=== PATIENT | female | born 1955 | race Caucasian/White ===

== ENCOUNTER 2018-11-04 05:25 | Day surgery (SDC) | payer OTHER ==
[2018-11-03 14:59] VITALS: BMI 26.2
[2018-11-04] VITALS (14 sets, daily range): BP systolic 138–153; BP diastolic 56–75; PULSE 50–70; RESP 10–25; Ht 157.5 cm; Wt 78.2 kg
[~2018-11-04] VITALS: Ht 157.5 cm; Wt 78.2 kg
[~2018-11-04 05:25] MED LIST: ATEN50TA PO; CHLO25TA2 PO
[2018-11-04] MEDS ORDERED: BUPIVACAINE 0.5%/EPI (SDV) 30 ML INJ ONE (06:46)
[2018-11-04] MEDS ORDERED: LACTATED RINGER'S 1,000 ML IV SCH (07:30)
[2018-11-04] MEDS ORDERED: MIDAZOLAM 1 MG/ML 2 ML INJ ONE (07:37)
[2018-11-04] MEDS ORDERED: CEFAZOLIN 1 GM INJ ONE (08:19)
[2018-11-04] MEDS ORDERED: GLYCOPYRROLATE 0.4 MG INJ ONE (08:19)
[2018-11-04] MEDS ORDERED: ONDANSETRON 4 MG INJ ONE (08:19)
[2018-11-04] MEDS ORDERED: LIDOCAINE 2% (SDV) 5 ML INJ ONE (08:19)
[2018-11-04] MEDS ORDERED: NEOSTIGMINE 3 MG/3 ML SYRINGE ONE (08:19)
[2018-11-04] MEDS ORDERED: PROPOFOL 20 ML ONE (08:19)
[2018-11-04] MEDS ORDERED: ROCURONIUM 50 MG INJ ONE (08:19)
[2018-11-04] MEDS ORDERED: SUGAMMADEX SODIUM 200 MG/2 ML VIAL IV ONE (08:29)
[2018-11-04] MEDS ORDERED: morphine 2 MG INJ IV PRN (08:30)
[2018-11-04] MEDS ORDERED: OXYCODONE/ACETAMINOPHEN (5/325) TAB PO PRN ×2 (08:30)
[2018-11-04] MEDS ORDERED: ONDANSETRON 4 MG INJ IV PRN (08:30)
[2018-11-04] MEDS ORDERED: DIPHENHYDRAMINE 50 MG INJ IV PRN (09:00)
[2018-11-04] MEDS ORDERED: FENTAnyl 50 MCG/ML VIAL IV PRN (09:00)
[2018-11-04] MEDS ORDERED: LABETALOL HCL 20MG INJ IV PRN (09:00)
[2018-11-04] MEDS ORDERED: HYDROmorphONE 1 MG/5 ML IV SYRINGE IV PRN (09:00)
[2018-11-04] MEDS ORDERED: hydrALAzine 20 MG INJ IV PRN (09:00)
[2018-11-04] MEDS ORDERED: KETOROLAC 30 MG INJ IV PRN (09:00)
[2018-11-04] MEDS ORDERED: MEPERIDINE 25 MG INJ IV PRN (09:00)
[2018-11-04] MEDS: HYDROmorphONE 1 MG/5 ML IV SYRINGE IV PRN ×2 (09:14→09:38)
[2018-11-04] MEDS ORDERED: ROPIVACAINE 0.5 % 30 ML VIAL ONE (09:26)
[2018-11-04] MEDS: ONDANSETRON 4 MG INJ IV PRN ×2 (10:04→10:47)
== END 2018-11-04 12:13 | disposition home or self-care (01) ==
LOC: SDS 05:25
PROVIDERS: ATTEND Surgery
DX: K80.10 Calculus of gallbladder with chronic cholecystitis without obstruction (principal); I10 Essential (primary) hypertension; E78.5 Hyperlipidemia, unspecified; E66.9 Obesity, unspecified
CPT/HCPCS: 88304; J0690; J1170; J2250; J2405; J2710; J2795; J3010